=== PATIENT | female | born 1960 | race Caucasian/White ===

== ENCOUNTER 2018-01-19 12:34 | Inpatient (IN) | payer BC ==
[~2018-01-19] VITALS: Ht 160 cm; Wt 72.1 kg
[2018-01-19 13:26] LABS: BASOPHILS 0.2 % (0-2); EOSINOPHILS 0.2 % (0-7); HEMATOCRIT 39.8 % (36.0-48.0); HEMOGLOBIN 13.5 g/dL (12-16); IMMATURE GRANULOCYTES 0.2 % (0-5); LYMPHOCYTES 11.5 % (15-50); MCH 30.5 pg (26.0-34.0); MCHC 33.9 g/dL (31.0-37.0); MEAN PLATELET VOLUME 10.9 fL (7.4-10.4); MONOCYTES 10.2 % (2-11); NEUTROPHILS 77.7 % (40-80); PLATELET COUNT 261 10x3/uL (130-400); RBC 4.42 10x6/uL (4.00-5.40); RDW 12.8 % (11.5-14.5); WBC 10.8 10x3/uL (4.8-10.8)
[2018-01-19 13:34] LABS: APPEARANCE HAZY (CLEAR); BILIRUBIN NEGATIVE (NEGATIVE); COLOR YELLOW (YELLOW); GLUCOSE NEGATIVE (NEGATIVE); KETONE MODERATE mg/dL (NEGATIVE); NITRITE NEGATIVE (NEGATIVE); PROTEIN 1+ mg/dL (NEGATIVE); UROBILINOGEN NORMAL (NORMAL)
[2018-01-19 13:44] LABS: AMORPHOUS SEDIMENT >1+ /lpf (NONE SEEN); BACTERIA MANY /hpf (NONE SEEN); EPITHELIAL CELLS 0-5 /hpf (0-5); GRANULAR CAST 0-5 /lpf (NONE SEEN); HYALINE CAST OCC /lpf (NONE SEEN); MUCUS <1+ /lpf (NONE SEEN); RED CELLS - URINE 0-5 /hpf (0-5); WHITE CELLS - URINE 0-5 /hpf (0-5)
[2018-01-19 14:00] LABS: ALBUMIN 3.5 g/dL (3.4-5.0); ANION GAP 15.7 mmol/L (8-16); BILIRUBIN - TOTAL 1.04 mg/dL (0.2-1.3); CALCIUM 8.9 mg/dL (8.5-10.1); CARBON DIOXIDE 27.4 mmol/L (21.0-32.0); CREATININE - SERUM 0.9 mg/dL (0.6-1.3); POTASSIUM - SERUM 3.1 mmol/L (3.5-5.1); PROTEIN - SERUM 7.2 g/dL (6.4-8.2)
[2018-01-19] MEDS ORDERED: HYDROCHLOROTHIA25 MG PO (19:46)
[2018-01-19] MEDS ORDERED: PROTONIX40 MG PO (19:46)
[2018-01-19] MEDS ORDERED: MYSOLINE 50 MG50 MG PO (19:48)
[2018-01-19] MEDS ORDERED: TENORMIN25 MG PO (19:49)
[2018-01-19] MEDS ORDERED: BUPROPION XL300 MG PO (19:49)
[2018-01-19] MEDS ORDERED: LOW DOSE ASPIRI81 M1 PO (19:50)
[2018-01-19 22:24] VITALS: BP 127/79
[2018-01-19 23:46] VITALS: BP 127/79; BMI 28.2
[2018-01-20 05:57] LABS: BASOPHILS 0.2 % (0-2); EOSINOPHILS 0.6 % (0-7); HEMATOCRIT 37.5 % (36.0-48.0); HEMOGLOBIN 12.4 g/dL (12-16); IMMATURE GRANULOCYTES 0.2 % (0-5); MCH 30.4 pg (26.0-34.0); MCHC 33.1 g/dL (31.0-37.0); MCV 91.9 fL (80.0-100.0); MEAN PLATELET VOLUME 11.2 fL (7.4-10.4); MONOCYTES 11.4 % (2-11); NEUTROPHILS 76.6 % (40-80); PLATELET COUNT 263 10x3/uL (130-400); RBC 4.08 10x6/uL (4.00-5.40); RDW 13.2 % (11.5-14.5); WBC 10.7 10x3/uL (4.8-10.8)
[2018-01-20 06:25] LABS: ALBUMIN 3.1 g/dL (3.4-5.0); ANION GAP 12.8 mmol/L (8-16); BILIRUBIN - TOTAL 0.9 mg/dL (0.2-1.3); CALCIUM 8.2 mg/dL (8.5-10.1); CREATININE - SERUM 1.1 mg/dL (0.6-1.3); PROTEIN - SERUM 6.7 g/dL (6.4-8.2)
[2018-01-20 06:27] LABS: POTASSIUM - SERUM 3.8 mmol/L (3.5-5.1)
[2018-01-20 08:00] VITALS: BP 126/68
[2018-01-20 11:30] VITALS: BP 117/67
[2018-01-20 15:30] VITALS: BP 147/69
[2018-01-20 21:51] VITALS: BP 118/82
[2018-01-21 05:05] VITALS: BP 126/68
[2018-01-21 07:33] LABS: ANION GAP 14.5 mmol/L (8-16); CALCIUM 7.9 mg/dL (8.5-10.1); CARBON DIOXIDE 23.8 mmol/L (21.0-32.0); POTASSIUM - SERUM 4.3 mmol/L (3.5-5.1)
[2018-01-21 09:38] VITALS: BP 120/60
[2018-01-21 15:04] VITALS: BP 116/73
[2018-01-21 18:59] VITALS: BP 122/71
[2018-01-21 23:59] VITALS: BP 126/69
[2018-01-22 04:17] VITALS: BP 124/60
[2018-01-22 06:49] LABS: BASOPHILS 0.4 % (0-2); EOSINOPHILS 3.9 % (0-7); HEMATOCRIT 33.5 % (36.0-48.0); IMMATURE GRANULOCYTES 0.4 % (0-5); LYMPHOCYTES 20.6 % (15-50); MCH 29.9 pg (26.0-34.0); MCHC 32.8 g/dL (31.0-37.0); MEAN PLATELET VOLUME 10.7 fL (7.4-10.4); NEUTROPHILS 64.7 % (40-80); PLATELET COUNT 231 10x3/uL (130-400); RBC 3.68 10x6/uL (4.00-5.40); RDW 12.8 % (11.5-14.5); WBC 5.4 10x3/uL (4.8-10.8)
[2018-01-22 07:30] LABS: ALBUMIN 2.5 g/dL (3.4-5.0); ALKALINE PHOSPHATASE 68 U/L (46-116); ALT (SGPT) 25 U/L (10-68); AMYLASE - SERUM 20 U/L (25-115); BILIRUBIN - TOTAL 0.52 mg/dL (0.2-1.3); CALCIUM 7.7 mg/dL (8.5-10.1); CARBON DIOXIDE 27.6 mmol/L (21.0-32.0); CHLORIDE - SERUM 105 mmol/L (98-107); GLUCOSE 90 mg/dL (74-106); LIPASE 83 U/L (73-393); POTASSIUM - SERUM 3.7 mmol/L (3.5-5.1); PROTEIN - SERUM 5.8 g/dL (6.4-8.2); SODIUM 139 mmol/L (136-145); TRIGLYCERIDE 74 mg/dL (30-200)
[2018-01-22 07:31] LABS: CALC OSMOLALITY 275 mosm/kg (275-300); CREATININE - SERUM 0.7 mg/dL (0.6-1.3); UREA NITROGEN 8 mg/dL (7-18); eGFR NON AFRICAN AMERICAN > 90 mL/min (90-120)
[2018-01-22 08:40] VITALS: BP 154/67
[2018-01-22 12:33] VITALS: Ht 160 cm; Wt 72.1 kg
[2018-01-22 13:03] VITALS: BP 125/63
[2018-01-22 15:24] LABS: ANA REFLEX - DIRECT Negative (Negative)
[2018-01-22 16:59] VITALS: BP 134/77
[2018-01-22 20:22] VITALS: BP 131/70
[2018-01-23 03:13] LABS: IGG SUBCLASS 1 258 mg/dL (248-810); IGG SUBCLASS 2 181 mg/dL (130-555); IGG SUBCLASS 3 43 mg/dL (15-102); IGG SUBCLASS 4 10 mg/dL (2-96)
[2018-01-23 04:40] VITALS: BP 130/69
[2018-01-23 06:33] LABS: BASOPHILS 0.6 % (0-2); EOSINOPHILS 5.7 % (0-7); HEMATOCRIT 32.9 % (36.0-48.0); HEMOGLOBIN 10.7 g/dL (12-16); IMMATURE GRANULOCYTES 0.6 % (0-5); LYMPHOCYTES 30.9 % (15-50); MCH 29.9 pg (26.0-34.0); MCHC 32.5 g/dL (31.0-37.0); MCV 91.9 fL (80.0-100.0); MEAN PLATELET VOLUME 10.3 fL (7.4-10.4); NEUTROPHILS 52.2 % (40-80); PLATELET COUNT 239 10x3/uL (130-400); RBC 3.58 10x6/uL (4.00-5.40); RDW 12.7 % (11.5-14.5); WBC 3.5 10x3/uL (4.8-10.8)
[2018-01-23 07:15] LABS: CALC OSMOLALITY 278 mosm/kg (275-300); CALCIUM 7.8 mg/dL (8.5-10.1); CARBON DIOXIDE 26.1 mmol/L (21.0-32.0); CHLORIDE - SERUM 108 mmol/L (98-107); CREATININE - SERUM 0.8 mg/dL (0.6-1.3); GLUCOSE 90 mg/dL (74-106); LIPASE 136 U/L (73-393); POTASSIUM - SERUM 3.5 mmol/L (3.5-5.1); SODIUM 141 mmol/L (136-145); UREA NITROGEN 6 mg/dL (7-18); eGFR NON AFRICAN AMERICAN 78 mL/min (90-120)
[2018-01-23 07:18] LABS: AMYLASE - SERUM 26 U/L (25-115)
[2018-01-23 08:30] VITALS: BP 158/69
[2018-01-23 13:22] VITALS: BP 122/69
[2018-01-23 17:23] VITALS: BP 122/62
== END 2018-01-23 18:36 | disposition home or self-care (01) | DRG 439 ==
LOC: D.ER 12:34 → D.EDHOLD 17:19 → D.MS 17:19
PROVIDERS: Family Medicine; Internal Medicine Gastroenterology
PROC: 05HC33Z Insertion of Infusion Device into Left Basilic Vein, Percutaneous Approach (ICD-10-PCS; principal; 2018-01-22)
PROC: B54NZZA Ultrasonography of Left Upper Extremity Veins, Guidance (ICD-10-PCS; 2018-01-22)
DX: K85.90 Acute pancreatitis without necrosis or infection, unspecified (principal); J98.11 Atelectasis; I10 Essential (primary) hypertension; R11.0 Nausea; G43.909 Migraine, unspecified, not intractable, without status migrainosus

== ENCOUNTER 2018-06-14 18:09 | Inpatient (IN) | payer BC ==
[~2018-06-14] VITALS: Ht 160 cm; Wt 95.5 kg
[~2018-06-14 18:09] MED LIST: BUPROPION XL300 MG PO; HYDROCHLOROTHIA25 MG PO; LOW DOSE ASPIRI81 M1 PO; MYSOLINE 50 MG50 MG PO; PROTONIX40 MG PO; TENORMIN25 MG PO
[2018-06-14] MEDS ORDERED: LEXAPRO20 MG PO (18:23)
[2018-06-14 18:38] LABS: BASOPHILS 0.4 % (0-2); HEMATOCRIT 39.9 % (36.0-48.0); HEMOGLOBIN 13.4 g/dL (12-16); IMMATURE GRANULOCYTES 0.2 % (0-5); LYMPHOCYTES 9.7 % (15-50); MCHC 33.6 g/dL (31.0-37.0); MCV 89.3 fL (80.0-100.0); MEAN PLATELET VOLUME 10.7 fL (7.4-10.4); MONOCYTES 7.8 % (2-11); NEUTROPHILS 80.9 % (40-80); PLATELET COUNT 246 10x3/uL (130-400); RBC 4.47 10x6/uL (4.00-5.40); RDW 13.3 % (11.5-14.5); WBC 10.4 10x3/uL (4.8-10.8)
[2018-06-14 19:04] LABS: ALBUMIN 3.6 g/dL (3.4-5.0); BILIRUBIN - TOTAL 0.54 mg/dL (0.2-1.3); CALCIUM 8.2 mg/dL (8.5-10.1); CARBON DIOXIDE 29.8 mmol/L (21.0-32.0); CREATININE - SERUM 0.9 mg/dL (0.6-1.3); POTASSIUM - SERUM 3.8 mmol/L (3.5-5.1); PROTEIN - SERUM 6.8 g/dL (6.4-8.2)
[2018-06-14 20:36] LABS: APPEARANCE CLEAR (CLEAR); BILIRUBIN NEGATIVE (NEGATIVE); COLOR YELLOW (YELLOW); GLUCOSE NEGATIVE (NEGATIVE); KETONE SMALL mg/dL (NEGATIVE); NITRITE NEGATIVE (NEGATIVE); PROTEIN NEGATIVE (NEGATIVE); UROBILINOGEN NORMAL (NORMAL)
[2018-06-14 20:38] LABS: BACTERIA MANY /hpf (NONE SEEN); EPITHELIAL CELLS 0-5 /hpf (0-5); RED CELLS - URINE 0-5 /hpf (0-5); YEAST <1+ /hpf (NONE SEEN)
[2018-06-14 23:39] VITALS: BP 132/78; Ht 160 cm; Wt 95.5 kg
[2018-06-15 02:35] VITALS: BP 132/78
[2018-06-15 06:04] LABS: BASOPHILS 0.2 % (0-2); EOSINOPHILS 0.5 % (0-7); HEMATOCRIT 37.7 % (36.0-48.0); HEMOGLOBIN 12.4 g/dL (12-16); IMMATURE GRANULOCYTES 0.1 % (0-5); LYMPHOCYTES 9.5 % (15-50); MCH 29.6 pg (26.0-34.0); MCHC 32.9 g/dL (31.0-37.0); MEAN PLATELET VOLUME 10.9 fL (7.4-10.4); MONOCYTES 9.8 % (2-11); NEUTROPHILS 79.9 % (40-80); PLATELET COUNT 233 10x3/uL (130-400); RBC 4.19 10x6/uL (4.00-5.40); RDW 13.6 % (11.5-14.5); WBC 9.6 10x3/uL (4.8-10.8)
[2018-06-15 06:37] VITALS: BP 136/87
[2018-06-15 06:56] LABS: ALBUMIN 3.2 g/dL (3.4-5.0); ALKALINE PHOSPHATASE 97 U/L (46-116); ALT (SGPT) 42 U/L (10-68); BILIRUBIN - TOTAL 0.67 mg/dL (0.2-1.3); CALC OSMOLALITY 280 mosm/kg (275-300); CALCIUM 8.4 mg/dL (8.5-10.1); CARBON DIOXIDE 27.3 mmol/L (21.0-32.0); CHLORIDE - SERUM 104 mmol/L (98-107); CREATININE - SERUM 0.8 mg/dL (0.6-1.3); GLUCOSE 113 mg/dL (74-106); MAGNESIUM - SERUM 1.8 mg/dL (1.8-2.4); PHOSPHOROUS 3.2 mg/dL (2.5-4.9); POTASSIUM - SERUM 4.1 mmol/L (3.5-5.1); PROTEIN - SERUM 6.3 g/dL (6.4-8.2); SODIUM 140 mmol/L (136-145); UREA NITROGEN 14 mg/dL (7-18); eGFR NON AFRICAN AMERICAN 77 mL/min (90-120)
[2018-06-15 08:14] VITALS: BP 151/78
[2018-06-15 12:24] VITALS: BP 174/86
[2018-06-15 12:56] LABS: APPEARANCE CLEAR (CLEAR); COLOR DY (YELLOW)
[2018-06-15 12:57] LABS: BILIRUBIN NEGATIVE (NEGATIVE); GLUCOSE NEGATIVE (NEGATIVE); KETONE NEGATIVE (NEGATIVE); NITRITE NEGATIVE (NEGATIVE); PROTEIN NEGATIVE (NEGATIVE); UROBILINOGEN NORMAL (NORMAL)
[2018-06-15 16:04] VITALS: BP 119/77
[2018-06-15 22:50] VITALS: BP 133/67
[2018-06-16 05:42] LABS: BASOPHILS 0.2 % (0-2); EOSINOPHILS 2.5 % (0-7); HEMATOCRIT 32.8 % (36.0-48.0); HEMOGLOBIN 10.4 g/dL (12-16); IMMATURE GRANULOCYTES 0.1 % (0-5); LYMPHOCYTES 14.6 % (15-50); MCH 28.8 pg (26.0-34.0); MCHC 31.7 g/dL (31.0-37.0); MCV 90.9 fL (80.0-100.0); MEAN PLATELET VOLUME 10.8 fL (7.4-10.4); MONOCYTES 7.1 % (2-11); NEUTROPHILS 75.5 % (40-80); PLATELET COUNT 215 10x3/uL (130-400); RBC 3.61 10x6/uL (4.00-5.40); RDW 13.8 % (11.5-14.5); WBC 8.5 10x3/uL (4.8-10.8)
[2018-06-16 06:43] LABS: ALBUMIN 2.6 g/dL (3.4-5.0); ALKALINE PHOSPHATASE 101 U/L (46-116); ALT (SGPT) 40 U/L (10-68); CALCIUM 7.7 mg/dL (8.5-10.1); CARBON DIOXIDE 26.1 mmol/L (21.0-32.0); CHLORIDE - SERUM 106 mmol/L (98-107); CREATININE - SERUM 0.8 mg/dL (0.6-1.3); GLUCOSE 90 mg/dL (74-106); LIPASE 96 U/L (73-393); POTASSIUM - SERUM 3.6 mmol/L (3.5-5.1); PROTEIN - SERUM 5.5 g/dL (6.4-8.2); SODIUM 139 mmol/L (136-145); eGFR NON AFRICAN AMERICAN 77 mL/min (90-120)
[2018-06-16 06:51] LABS: CALC OSMOLALITY 276 mosm/kg (275-300); UREA NITROGEN 10 mg/dL (7-18)
[2018-06-16 08:00] VITALS: BP 130/72
[2018-06-16 08:06] VITALS: BP 127/60
[2018-06-16 11:58] VITALS: BP 130/70
[2018-06-16 17:03] VITALS: BP 103/58
[2018-06-17 00:11] VITALS: BP 114/46
[2018-06-17 04:00] VITALS: BP 100/55
[2018-06-17 06:02] LABS: BASOPHILS 0.2 % (0-2); EOSINOPHILS 6.2 % (0-7); IMMATURE GRANULOCYTES 0.4 % (0-5); LYMPHOCYTES 21.4 % (15-50); MCH 29.2 pg (26.0-34.0); MCHC 32.3 g/dL (31.0-37.0); MCV 90.4 fL (80.0-100.0); MEAN PLATELET VOLUME 10.6 fL (7.4-10.4); MONOCYTES 9.7 % (2-11); NEUTROPHILS 62.1 % (40-80); PLATELET COUNT 191 10x3/uL (130-400); RBC 3.43 10x6/uL (4.00-5.40); RDW 13.6 % (11.5-14.5)
[2018-06-17 06:10] LABS: WBC 4.5 10x3/uL (4.8-10.8)
[2018-06-17 06:52] LABS: ALBUMIN 2.4 g/dL (3.4-5.0); ALKALINE PHOSPHATASE 114 U/L (46-116); ALT (SGPT) 38 U/L (10-68); BILIRUBIN - TOTAL 0.52 mg/dL (0.2-1.3); CALCIUM 7.4 mg/dL (8.5-10.1); CARBON DIOXIDE 26.8 mmol/L (21.0-32.0); CHLORIDE - SERUM 107 mmol/L (98-107); CREATININE - SERUM 0.7 mg/dL (0.6-1.3); GLUCOSE 82 mg/dL (74-106); LIPASE 83 U/L (73-393); POTASSIUM - SERUM 3.4 mmol/L (3.5-5.1); PROTEIN - SERUM 5.3 g/dL (6.4-8.2); SODIUM 143 mmol/L (136-145); eGFR NON AFRICAN AMERICAN 90 mL/min (90-120)
[2018-06-17 06:57] LABS: CALC OSMOLALITY 281 mosm/kg (275-300); UREA NITROGEN 7 mg/dL (7-18)
[2018-06-17 07:00] VITALS: BP 131/72
[2018-06-17] MEDS ORDERED: ESTRACE1 MG PO (12:45)
[2018-06-17 17:00] VITALS: BP 159/83
[2018-06-17 23:37] VITALS: BP 160/82
[2018-06-18 05:00] VITALS: BP 131/68
[2018-06-18 06:20] LABS: BASOPHILS 0.4 % (0-2); EOSINOPHILS 6.6 % (0-7); HEMATOCRIT 31.3 % (36.0-48.0); HEMOGLOBIN 10.3 g/dL (12-16); IMMATURE GRANULOCYTES 0.2 % (0-5); LYMPHOCYTES 24.8 % (15-50); MCH 29.2 pg (26.0-34.0); MCHC 32.9 g/dL (31.0-37.0); MCV 88.7 fL (80.0-100.0); MEAN PLATELET VOLUME 10.4 fL (7.4-10.4); MONOCYTES 6.6 % (2-11); NEUTROPHILS 61.4 % (40-80); RBC 3.53 10x6/uL (4.00-5.40); RDW 13.4 % (11.5-14.5); WBC 4.5 10x3/uL (4.8-10.8)
[2018-06-18 06:22] LABS: PLATELET COUNT 230 10x3/uL (130-400)
[2018-06-18 06:39] LABS: ALBUMIN 2.5 g/dL (3.4-5.0); ALKALINE PHOSPHATASE 142 U/L (46-116); ALT (SGPT) 42 U/L (10-68); BILIRUBIN - TOTAL 0.46 mg/dL (0.2-1.3); CALCIUM 7.6 mg/dL (8.5-10.1); CARBON DIOXIDE 26.9 mmol/L (21.0-32.0); CHLORIDE - SERUM 109 mmol/L (98-107); CREATININE - SERUM 0.7 mg/dL (0.6-1.3); GLUCOSE 90 mg/dL (74-106); LIPASE 102 U/L (73-393); POTASSIUM - SERUM 3.4 mmol/L (3.5-5.1); PROTEIN - SERUM 5.4 g/dL (6.4-8.2); SODIUM 143 mmol/L (136-145); eGFR NON AFRICAN AMERICAN 90 mL/min (90-120)
[2018-06-18 06:41] LABS: CALC OSMOLALITY 281 mosm/kg (275-300); UREA NITROGEN 4 mg/dL (7-18)
[2018-06-18] MEDS ORDERED: CYCLOBENZAPRINE10 MG PO (07:46)
[2018-06-18] MEDS ORDERED: ESGIC TABLET1 TAB PO (07:46)
[2018-06-18 08:02] VITALS: BP 109/76
== END 2018-06-18 12:37 | disposition home or self-care (01) | DRG 440 ==
LOC: D.ER 18:09 → D.M2 22:06 → D.EDHOLD 22:06 → D.M2 22:09
PROVIDERS: Family Medicine
DX: K85.90 Acute pancreatitis without necrosis or infection, unspecified (principal); I10 Essential (primary) hypertension; K21.9 Gastro-esophageal reflux disease without esophagitis

== ENCOUNTER → 2019-03-14 09:18 | Outpatient (CLI) | payer OTHER ==
[2018-06-14 23:39] VITALS: BMI 40.4
[~2019-03-14 09:18] MED LIST changes: +CYCLOBENZAPRINE10 MG PO; +ESGIC TABLET1 TAB PO; +ESTRACE1 MG PO; +LEXAPRO20 MG PO
== END | disposition home or self-care (01) ==
LOC: D.US 09:18 → D.MAMMO 11:15
PROVIDERS: ATTEND Family Medicine
DX: Z12.31 Encounter for screening mammogram for malignant neoplasm of breast (principal); Z04.1 Encounter for examination and observation following transport accident

== ENCOUNTER → 2019-07-28 07:42 | Outpatient (CLI) | payer OTHER ==
[2018-06-14 23:39] VITALS: BMI 40.4
== END | disposition home or self-care (01) ==
LOC: D.NM 07:42
PROVIDERS: ATTEND Nurse Practitioner
DX: E04.1 Nontoxic single thyroid nodule (principal)

== ENCOUNTER 2020-04-01 09:00 | Outpatient (CLI) | payer OTHER ==
[2018-06-14 23:39] VITALS: BMI 40.4
== END 2020-04-01 10:00 | disposition home or self-care (01) ==
LOC: D.MAMMO 09:00
PROVIDERS: ATTEND Nurse Practitioner
DX: Z12.31 Encounter for screening mammogram for malignant neoplasm of breast (principal)

== ENCOUNTER → 2020-04-13 19:00 | Outpatient (CLI) | payer OTHER ==
[2018-06-14 23:39] VITALS: BMI 40.4
== END | disposition home or self-care (01) ==
LOC: D.MAMMO 14:00
PROVIDERS: ATTEND Family Medicine
DX: R92.8 Other abnormal and inconclusive findings on diagnostic imaging of breast (principal)

== ENCOUNTER → 2020-07-29 09:49 | Outpatient (CLI) | payer OTHER ==
[2018-06-14 23:39] VITALS: BMI 40.4
== END | disposition home or self-care (01) ==
LOC: D.US 09:49
PROVIDERS: ATTEND Family Medicine
DX: E04.1 Nontoxic single thyroid nodule (principal)

== ENCOUNTER → 2021-04-07 14:30 | Outpatient (CLI) | payer BC ==
[2018-06-14 23:39] VITALS: BMI 40.4
== END | disposition home or self-care (01) ==
LOC: D.MAMMO 14:30
PROVIDERS: ATTEND Nurse Practitioner
DX: Z12.31 Encounter for screening mammogram for malignant neoplasm of breast (principal)